=== PATIENT | female | born 1930 | race Caucasian/White ===

== ENCOUNTER → 2016-07-17 | Outpatient (CLI) | payer MEDICARE, BC ==
[2016-07-17 12:36] LABS: Basophils % (A) 0 %; CH 27.1; CHCM 30.7; Eosinophils # (A) 0.1 k/uL (0-0.7); Eosinophils % (A) 1 %; HCT 32.9 % (34.0-46.0); HDW 2.67; HGB 10.3 gm/dL (11.4-16.0); Hypochromasia Moderate; Luc # (Auto) 0.15; Luc % (Auto) 2; Lymphocytes # (A) 1.1 k/uL (1.0-4.8); Lymphocytes % (A) 18 %; MCH 27.7 pg (25.0-35.0); MCHC 31.2 g/dL (31.0-37.0); MCV 88.8 fL (80.0-100.0); Mean Platelet Volume 7.7; Monocytes # (A) 0.6 k/uL (0-1.0); Monocytes % (A) 9 %; Neutrophils # (A) 4.6 k/uL (1.3-7.7); Neutrophils % (A) 70 %; RDW 12.8 % (11.5-15.5); WBC 6.5 k/uL (3.8-10.6); WBC (Perox) 6.77
[2016-07-17 12:55] LABS: Anion Gap 11 mmol/L; Blood Urea Nitrogen 27 mg/dL (7-17); Calcium 9.8 mg/dL (8.4-10.2); Carbon Dioxide 29 mmol/L (22-30); Chloride 103 mmol/L (98-107); Glucose 96 mg/dL (74-99); Non-African American GFR(MDRD) 56 (>60 ml/min/1.73 sqM); Potassium 4.1 mmol/L (3.5-5.1); Sodium 143 mmol/L (137-145)
[2016-07-17 13:31] LABS: Appearance,Urine Clear (Clear); Bilirubin,Urine Negative (Negative); Glucose,Urine (UA) Negative (Negative); Ketones,Urine Negative (Negative); Leukocyte Esterase,Urine Trace (Negative); Nitrite,Urine Negative (Negative); Particle Count 400; Protein,Urine Trace (Negative); RBC,Urine 4 /hpf (0-5); Specific Gravity,Urine 1.008 (1.001-1.035); UA Billing (MACRO vs. MICRO) MICRO; Urobilinogen,Urine <2.0 mg/dL (<2.0); WBC,Urine 7 /hpf (0-5)
== END | disposition home or self-care (01) ==
LOC: LABPAT 11:54
PROVIDERS: ATTEND Urology
DX: Z01.812 Encounter for preprocedural laboratory examination (principal); Z01.810 Encounter for preprocedural cardiovascular examination; R35.0 Frequency of micturition; E78.00 Pure hypercholesterolemia, unspecified; R53.83 Other fatigue
CPT/HCPCS: 80048; 81001; 85025; 87086

== ENCOUNTER 2016-07-26 08:04 | Inpatient (IN) | payer MEDICARE, BC ==
[2016-07-24 11:04] VITALS: BMI 18.3
[~2016-07-26 08:04] MED LIST: LIDOCAINE 1% 20 ML VIAL (10MG/ML) FOR IV START INTRADERMA PRN; ONDANSETRON 4 MG/2 ML VIAL IVP ONE; Pre Op ABX Message 1 EACH MISC MISCELLANE ONE
[2016-07-26] MEDS: LACTATED RINGERS 1,000 ML IV SCH (08:58)
[2016-07-26] MEDS ORDERED: DEXAMETHASONE SOD PHOS (MDV) 100 MG/10 ML VIAL IV ONE (08:59)
[2016-07-26] MEDS ORDERED: PROPOFOL 10 MG/ML 20 ML VIAL IV ONE (09:40)
[2016-07-26] MEDS ORDERED: GLYCOPYRROLATE 0.2 MG/ML 2 ML VIAL ONE (09:40)
[2016-07-26] MEDS ORDERED: fentaNYL (PF) 50 MCG/ML 2 ML AMP ONE (09:40)
[2016-07-26] MEDS ORDERED: METOPROLOL TARTRATE 5 MG/5 ML VIAL IVP ONE (09:40)
[2016-07-26] MEDS ORDERED: LIDOCAINE 1% INJ 10MG/ML (20 ML MDV) ONE (09:40)
[2016-07-26] MEDS ORDERED: IOHEXOL 180 MG/ML 1 ML ML MISCELLANE ONE (10:02)
[2016-07-26] MEDS ORDERED: MORPHINE SULFATE 2 MG/ML SYRINGE IV PRN (10:29)
[2016-07-26] MEDS ORDERED: ACETAMINOPHEN TAB 325 MG TAB PO PRN (10:29)
--- NOTE | 2016-07-26 10:36 | P.OP ---
Date of Procedure: 07/26/16 Preoperative Diagnosis: Superficial bladder cancer Postoperative Diagnosis: Same Procedure(s) Performed: Transurethral resection of recurrent superficial bladder cancer Anesthesia: ERIC Surgeon: Emiliano Melara Estimated Blood Loss (ml): 25 Pathology: other (Bladder tumor) Condition: stable Disposition: PACU Indications for Procedure: The patient is an 86-year-old female with recurrent superficial bladder cancer for many years. She chose not to follow up for about a urinary cath only to come back with gross hematuria. Cystoscopy identified multiple's recurrent superficial tumors on the posterior and anterior bladder wall Description of Procedure: The patient is brought to the operating suite and given a general endotracheal anesthesia. Cystoscopy Foroblique lens and 22-[place]izen [place] sheath identifies multiple small bladder tumors throughout the bladder wall and particularly of the posterior wall and in the anterior bladder neck. Cannot obviously find the ureteral orifice disease. With the Arango resectoscope and 25-[place]izen [place] sheath I resect all these tumors. There is an extremely thin portion of the right posterior bladder wall or ago transmural Scott appears to be within the fat. At the end of the procedure thus I elected to leave a 16-[place]izen [place] Cueto catheters placed and irrigates freely. The patient awake and returned recovery room good condition. Patellar procedure well. She'll be observed in the hospital overnight. She'll need to have the catheter left in place for a week because of the very thin posterior wall where the tumor is resected. a Cueto catheter and leave this. The bladder tumor areas were fulgurated thoroughly.
[2016-07-26] MEDS ORDERED: ONDANSETRON 4 MG/2 ML VIAL IVP ONE (10:44)
[2016-07-26] MEDS: HYDROmorphone 1 MG/ML 1 ML SYRINGE IVP PRN ×4 (11:11→12:16)
[2016-07-26] MEDS ORDERED: hydrALAZINE HCL 20 MG/ML 1 ML VIAL IVP ONE (12:53)
[2016-07-26] MEDS ORDERED: HYDROmorphone 1 MG/ML 1 ML SYRINGE IVP ONE ×2 (13:45→13:50)
[2016-07-26] MEDS: HYDROcodone/APAP 5-325MG 1 EACH TAB PO PRN ×2 (16:55→23:42)
[2016-07-26] MEDS: DEXTROSE 5%-0.45% NACL 1,000 ML IV SCH (17:34)
[2016-07-26] MEDS: DONEPEZIL 10 MG TAB PO SCH (20:53)
[2016-07-27] MEDS: HYDROcodone/APAP 5-325MG 1 EACH TAB PO PRN ×2 (05:18→13:27)
[2016-07-27] MEDS: ONDANSETRON 4 MG/2 ML VIAL IVP PRN (05:43)
--- NOTE | 2016-07-27 10:37 | P.PN ---
Subjective The patient underwent transurethral resection of multiple small bladder tumors yesterday. Her bladder poole very thin with posterior wall perforation which I' ve treated with a Cueto catheter. She did reasonably well overnight. Her urine is draining freely and is clear. She is still having some pain and nausea. Due to the pain and nausea I will continue to observe her another 24 hours. I'll try to get her up in a chair and ambulate her. We'll continue with her IVs for now. Objective - Vital Signs Vital signs: Vital Signs Temp 98.7 F 07/27/16 08:00 Pulse 84 07/27/16 08:00 Resp 18 07/27/16 08:00 BP 138/73 07/27/16 08:00 Pulse Ox 95 07/27/16 08:00 Intake & Output 07/26/16 07/27/16 07/27/16 18:59 06:59 18:59 Intake Total 400 225 Output Total 201 300 Balance 199 -75 Intake: IV 400 150 Dextrose 5%-0.45% NaCl 1, 150 000 ml @ 50 mls/hr IV . Q20H [facility] Rx#:[id number] Oral 75 Output: Urine 200 300 Estimated Blood Loss 1 Other: Voiding Method Indwelling Catheter Indwelling Catheter
[2016-07-27] MEDS: LACTATED RINGERS 1,000 ML IV SCH (13:28)
[2016-07-27] MEDS: ATENOLOL 25 MG TAB PO SCH (13:29)
[2016-07-27] MEDS: DEXTROSE 5%-0.45% NACL 1,000 ML IV SCH (13:29)
[2016-07-27] MEDS: ATORVASTATIN 20 MG TAB PO SCH (13:29)
[2016-07-27] MEDS: DONEPEZIL 10 MG TAB PO SCH (21:46)
[2016-07-28] MEDS: DEXTROSE 5%-0.45% NACL 1,000 ML IV SCH (04:13)
[2016-07-28] MEDS: LACTATED RINGERS 1,000 ML IV SCH (04:16)
--- NOTE | 2016-07-28 07:37 | P.DS ---
Providers Attending physician: Emiliano Melara Primary care physician: [facility] Course: The patient is an 86-year-old female who has a history of superficial recurrent bladder tumors. She elected not to follow up for about a 18 months until she had hematuria. Follow-up cystoscopy identified recurrent superficial cancers. She underwent resection. Due to her age and frail nature, a very thin bladder and the request the family I kept in the hospital overnight postoperatively. She had not moved still had discomfort in the morning thus I kept her another 24 hours. This morning she feels better. She has been up. Her pain is under control. She is ambulated. She requests to go home. She'll be discharged home this morning and follow-up next week for catheter removal. Pathology is pending upon discharge. Procedures: turbt Patient Condition at Discharge: Good Plan - Discharge Summary Discharge Medication List Donepezil [Aricept] 10 mg PO HS 07/23/15 [History] Calcium Carbonate/Vitamin D3 [Calcium 600-Vit D3 400 Caplet] 1 tab PO DAILY 05/03 [History] Atorvastatin [Lipitor] 20 mg PO DAILY 04/18/16 [History] Atenolol [Tenormin] 25 mg PO DAILY #30 tab 04/20/16 [Rx] Follow up Appointment(s)/Referral(s): [facility] Visiting Nurse, [NON-STAFF] - 1 Week Emiliano Melara MD [STAFF PHYSICIAN] - 08/03/16 Discharge Disposition: HOME SELF-CARE
[2016-07-28] MEDS: ATORVASTATIN 20 MG TAB PO SCH (10:34)
[2016-07-28] MEDS: ATENOLOL 25 MG TAB PO SCH (10:35)
[2016-07-28] MEDS: DONEPEZIL 10 MG TAB PO SCH (20:25)
[2016-07-29] MEDS: DEXTROSE 5%-0.45% NACL 1,000 ML IV SCH ×2 (03:14→18:30)
--- NOTE | 2016-07-29 10:21 | XR ---
EXAMINATION TYPE: XR abdomen 2V DATE OF EXAM: 07/29/2016 10:17 AM COMPARISON: CT abdomen pelvis 06/06/2016 INDICATION: Ileus TECHNIQUE: Abdomen examined in the supine and upright view. FINDINGS: There is air within the colon. Some nonspecific small bowel gas is present. Psoas margins are normal. No organomegaly is present. Costochondral cartilage calcification is present. Degenerative changes are within the lumbar spine IMPRESSION: 1. Nonspecific abdomen
--- NOTE | 2016-07-29 10:23 | XR ---
EXAMINATION TYPE: XR chest 2V DATE OF EXAM: 07/29/2016 10:17 AM COMPARISON: NONE INDICATION: Rehabilitation placement TECHNIQUE: Frontal and lateral views of the chest are obtained. FINDINGS: The heart size is normal. The pulmonary vasculature is normal. On the lateral view there is hyperinflation flattened diaphragms. Posterior pleural effusions are elías ntified. IMPRESSION: 1. 1. COPD. 2. Small posterior pleural effusions.
[2016-07-29 10:31] LABS: CH 26.6; CHCM 30.4; HCT 33.4 % (34.0-46.0); HDW 2.53; HGB 10.5 gm/dL (11.4-16.0); Hypochromasia Moderate; MCH 27.6 pg (25.0-35.0); MCHC 31.4 g/dL (31.0-37.0); MCV 87.9 fL (80.0-100.0); Mean Platelet Volume 7.7; RDW 12.9 % (11.5-15.5); WBC 9.8 k/uL (3.8-10.6)
[2016-07-29 11:16] LABS: Anion Gap 10 mmol/L; Blood Urea Nitrogen 29 mg/dL (7-17); Calcium 9.6 mg/dL (8.4-10.2); Carbon Dioxide 24 mmol/L (22-30); Chloride 101 mmol/L (98-107); Glucose 130 mg/dL (74-99); Non-African American GFR(MDRD) >60 (>60 ml/min/1.73 sqM); Sodium 135 mmol/L (137-145)
[2016-07-29] MEDS: ATENOLOL 25 MG TAB PO SCH (11:23)
[2016-07-29] MEDS: ATORVASTATIN 20 MG TAB PO SCH (11:23)
[2016-07-29] MEDS ORDERED: traMADol 50 MG TAB PO PRN (13:16)
[2016-07-29] MEDS: ONDANSETRON 4 MG/2 ML VIAL IVP PRN (13:25)
[2016-07-29] MEDS: METOPROLOL TARTRATE 12.5 MG TAB PO SCH ×2 (14:17→22:22)
[2016-07-29] MEDS ORDERED: KETOROLAC 30 MG/ML 1 ML VIAL IVP PRN (14:59)
--- NOTE | 2016-07-29 16:37 | HP ---
Patient is admitted for dissection of multiple small bladder tumors and patient had a Cueto catheter and patient does not have any much blood in the urine. I was consulted to take over the service, as patient will need disposition and patient does have dementia. Patient does have dementia, which appears to be advanced from discussion with the family members. Patient is thin but cachectic 86-year-old female. Patient is a bit cold and otherwise patient was having bilious vomiting. The abdominal x-ray did not show any obstructive bowel gas pattern. Patient will be started on Protonix and I will discontinue all the narcotics. Patient will be started on ketorolac on p.r.n. basis for pain. Patient appears to have more increased confusion because of the [place] she was receiving. Chest x-ray did not show any significant abnormality except for small posterior pleural effusions. Patient denied any dysuria. Patient denied any nausea, vomiting, abdominal pain. REVIEW OF SYSTEMS: Unable to obtain due to her clinical condition. Home medications include: 1. Atenolol. 2. Donepezil. 3. Calcium carbonate. 4. Atorvastatin. 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 SOCIAL HISTORY: Denied any smoking, alcohol abuse or any drug abuse. FAMILY HISTORY: Significant for cancer. PHYSICAL EXAMINATION: VITAL SIGNS: Temperature 97.8, pulse of 70, respiratory rate of 16, blood pressure is 150/76, saturating at 94% on room air. GENERAL: Patient is very thin build, alert and oriented times around 1, which is really worse than her baseline. HEENT: Pupils are round and equally reacting to light. EOMI. No scleral icterus. No conjunctival pallor. Normocephalic, atraumatic. No pharyngeal erythema. No thyromegaly. CARDIOVASCULAR: S1 and S2 present. No murmurs, rubs, or gallops. PULMONARY: Chest is clear to auscultation, no wheezing or crackles. ABDOMEN: Minimally distended, tympanic and bowel sounds are sluggish. MUSCULOSKELETAL: No joint swelling or deformity. EXTREMITIES: No cyanosis, clubbing, or pedal edema. NEUROLOGICAL: Gross neurological examination did not reveal any focal deficits. SKIN: No rashes. LABORATORY DATA: CBC, CMP: No significant abnormality except for elevated BUN and creatinine of 29 and 0.77 which I believe is renal failure in her because of lean body mass. Patient is a very thin built and cachectic female. ASSESSMENT AND PLAN: 1. Toxic metabolic encephalopathy secondary to narcotic medications which will be discontinued. 2. Acute renal failure, prerenal azotemia due to intravascular volume depletion. Because of the pleural effusions, I am concerned about giving her IV fluids. Will encourage her to drink water orally. 3. Hypertension. Patient will be switched to metoprolol. Atenolol will be discontinued because of her episodes of hypotension. 4. Sluggish bowel sounds. Nausea, vomiting, probably related to medications; that is, [place], which will be held and will make sure patient ambulates and moves her bowels. Patient will be started on Protonix. Will use ketorolac for pain. 5. Hyperlipidemia. 6. Dementia which appears to be moderate to advanced. Continue with donepezil. 7. Generalized deconditioning. 8. Moderate protein-calorie malnutrition. 9. For deconditioning, patient will need placement in rehabilitation as a longterm.
[2016-07-29 17:49] LABS: Glucose,Whole Blood 150 mg/dL (75-99)
[2016-07-29] MEDS: PANTOPRAZOLE 40 MG/10 ML VIAL IVP SCH (18:31)
[2016-07-29] MEDS: SODIUM CHLORIDE 0.9% 1,000 ML IV SCH (22:22)
[2016-07-29] MEDS: DONEPEZIL 10 MG TAB PO SCH (22:22)
[2016-07-30] MEDS: ONDANSETRON 4 MG/2 ML VIAL IVP PRN ×2 (02:04→22:14)
[2016-07-30] MEDS ORDERED: RX INFO: IV CONTRAST WAS GIVEN 1 EACH MISC MISCELLANE PRN (06:02)
[2016-07-30] MEDS ORDERED: METOCLOPRAMIDE 5 MG/ML 2 ML VIAL IVP PRN (06:05)
[2016-07-30] MEDS: SODIUM CHLORIDE 0.9% 250 ML IV SCH ×3 (07:15→18:59)
[2016-07-30] MEDS: SODIUM CHLORIDE 0.9% 1,000 ML IV SCH (07:20)
[2016-07-30] MEDS: DEXTROSE 5%-0.45% NACL 1,000 ML IV SCH ×2 (07:20→18:59)
[2016-07-30 08:06] LABS: CH 26.7; CHCM 30.3; HDW 2.63; HGB 12.1 gm/dL (11.4-16.0); Hypochromasia Moderate; Immature Gran Flag Marked; MCH 27.4 pg (25.0-35.0); MCHC 31.1 g/dL (31.0-37.0); MCV 88.2 fL (80.0-100.0); Mean Platelet Volume 7.6; RBC 4.42 m/uL (3.80-5.40); WBC 5.1 k/uL (3.8-10.6); WBC (Perox) 5.82
[2016-07-30 08:18] LABS: Anion Gap 13 mmol/L; Blood Urea Nitrogen 33 mg/dL (7-17); Calcium 8.6 mg/dL (8.4-10.2); Carbon Dioxide 18 mmol/L (22-30); Chloride 104 mmol/L (98-107); Glucose 202 mg/dL (74-99); Non-African American GFR(MDRD) >60 (>60 ml/min/1.73 sqM); Potassium 4.2 mmol/L (3.5-5.1); Sodium 135 mmol/L (137-145)
[2016-07-30 08:21] LABS: Add Differential Manual Differential
[2016-07-30 08:25] LABS: Manual Review Performed; Metamyelocytes % 2.5 %; Nucleated Red Blood Cells 0 /100 WBC (0-0); Total Cells Counted 200
[2016-07-30] MEDS: IOHEXOL 350 MG/ML 25 ML BOTTLE (ORAL USE) PO PRN ×2 (08:55→10:07)
[2016-07-30] MEDS: ATORVASTATIN 20 MG TAB PO SCH (08:56)
[2016-07-30] MEDS: METOPROLOL TARTRATE 12.5 MG TAB PO SCH ×2 (08:56→20:52)
[2016-07-30] MEDS: PANTOPRAZOLE 40 MG/10 ML VIAL IVP SCH (08:57)
--- NOTE | 2016-07-30 10:05 | P.PN ---
Subjective The patient is still in the hospital post-bladder tumor resection. She still has lower abdominal distention. She states she is passing gas. Her KUB was nonspecific and her labs are normal. A CAT scan of the abdomen has been ordered. Objective - Vital Signs Vital signs: Vital Signs Temp 98.1 F 07/30/16 03:45 Pulse 77 07/30/16 03:45 Resp 18 07/30/16 03:45 BP 137/80 07/30/16 03:45 Pulse Ox 94 L 07/29/16 15:00 Intake & Output 07/29/16 07/30/16 07/30/16 18:59 06:59 18:59 Intake Total 365 1320 Output Total 200 570 Balance 165 750 Weight 45.359 kg Intake: IV 325 1200 Dextrose 5%-0.45% NaCl 1, 325 1200 000 ml @ 100 mls/hr IV . Q10H [facility] Rx#:[id number] Oral 40 120 Output: Urine 200 570 Uretheral (Cueto) 200 Other: Voiding Method Indwelling Catheter Indwelling Catheter - Labs CBC & Chem 7: 07/30/16 07:57 07/30/16 07:55 Labs: Abnormal Lab Results - Last 24 Hours (Table) 07/29/16 07/29/16 07/29/16 Range/Units 10:18 10:18 17:44 Hgb 10.5 L (11.4-16.0) gm/dL Hct 33.4 L (34.0-46.0) % Lymphocytes # (Manual) (1.0-4.8) k/uL Sodium 135 L (137-145) mmol/L Carbon Dioxide (22-30) mmol/L BUN 29 H (7-17) mg/dL Glucose 130 H (74-99) mg/dL POC Glucose (mg/dL) 150 H (75-99) mg/dL 07/30/16 07/30/16 Range/Units 07:55 07:57 Hgb (11.4-16.0) gm/dL Hct (34.0-46.0) % Lymphocytes # (Manual) 0.2 L (1.0-4.8) k/uL Sodium 135 L (137-145) mmol/L Carbon Dioxide 18 L (22-30) mmol/L BUN 33 H (7-17) mg/dL Glucose 202 H (74-99) mg/dL POC Glucose (mg/dL) (75-99) mg/dL
--- NOTE | 2016-07-30 13:26 | CT ---
EXAMINATION TYPE: CT abdomen pelvis w con DATE OF EXAM: 07/30/2016 1:14 PM COMPARISON: 01/28/2016 INDICATION: Nausea, vomiting, and Distention DLP: 473.7 mGycm, Automated exposure control for dose reduction was used. CONTRAST: 100 mL of Omnipaque 300. Study performed with Oral Contrast TECHNIQUE: Axial images were obtained from above the diaphragm to the pubic rami in the axial plane a t 5 mm thick sections. Reconstructed images are reviewed on the computer in the coronal plane. FINDINGS: Limited CT sections are obtained the lung bases. Minimal left and small right pleural effusions are present.. CT ABDOMEN: Free air is within the abdomen. Hiatal hernia is present. Liver: Some biliary air may be present within the left lobe liver. Loculated air within the ascites i s evident. Spleen: Normal Pancreas: Normal Adrenal glands: The adrenal glands are normal. Gallbladder: Fluid surrounds the gallbladder. Kidneys: There is a 0.7 cm calcification superior pole left kidney. A smaller posterior lateral 0.4 c m calcification is present. There is a cyst at the inferior anterior pole of the right kidney.. No hy dronephrosis is present. Delayed images were obtained through the kidneys, which remain unremarkabl e. Aorta: Vascular calcification is within the aorta. Inferior vena cava: Normal. CT PELVIS: Diffuse wall thickening of the ascending colon is present. There is wall thickening of the terminal i leum. Mild lateral wall thickening is within the transverse and descending colon. No dilated descendi ng colon is evident There are loops of bowel which are incompletely distended or lack oral contrast l imiting their evaluation. Appendix: Not visualized Urinary bladder: Urinary bladder is decompressed with a Cueto catheter and cannot be evaluated. Loops of bowel superior to the urinary bladder has thickened wall. Genitourinary structures: Uterus is normal. Adnexal regions are clear. Osseous structures: Old left symphysis pubis fracture is present. Facet degenerative changes are pres ent. IMPRESSIONS: 1. Free air within the abdomen. This is not localized. Patient had recent urinary bladder surgery wh ich may account for this air. 2. Colon bowel wall thickening diffusely greater on the ascending colon site. Consider bowel ischemia or colitis. 3. Diffuse ascites. 4. Report was called to the patient's nurse by Dr. Bangura by telephone 1325 hours 07/29/2016
[2016-07-30] MEDS ORDERED: LACTATED RINGERS 1,000 ML IV SCH ×2 (14:30→16:45)
--- NOTE | 2016-07-30 14:55 | P.GSCN ---
History of Present Illness Consult date: 07/30/16 Reason for Consult: Free intrabdominal air Requesting physician: Emiliano Melara History of present illness: 86 years old female with chronic debility, poor functional status, dementia and multiple urinary bladder tumors status post recent cystoscopy and resection. Increasing abdominal distention noted and computed tomography scan of the abdomen and pelvis ordered. CT shows pockets of free intra-abdominal air and free fluid within the pelvis. Also shows some thickening along the right and ascending colon. Patient has dementia and history obtained from review of chart. She has an indwelling Cueto catheter with dark urine. Review of Systems As stated in history of present illness Past Medical History Past Medical History: Cancer, Dementia, GERD/Reflux, GI Bleed, Hyperlipidemia, Hypertension, Memory Impairment, Osteoarthritis (OA) Additional Past Medical History / Comment(s): bladder cancer, bladder tumors, cataracts, anemia from gastric ulcers, heart murmer and irregular heartbeat, varicose veins, hx fx pelvis, constipation, uses cane or walker, occ dizziness History of Any Multi-Drug Resistant Organisms: None Reported Past Surgical History: Adenoidectomy, Hysterectomy, Tonsillectomy Additional Past Surgical History / Comment(s): bladder surgery for tumors in bladder Past Anesthesia/Blood Transfusion Reactions: No Reported Reaction Past Psychological History: No Psychological Hx Reported Additional Psychological History / Comment(s): dementia Smoking Status: Never smoker Past Alcohol Use History: None Reported Past Drug Use History: None Reported - Past Family History Mother History Unknown: Yes Family Medical History: Coronary Artery Disease (CAD) Father Family Medical History: Cancer Brother(s) Family Medical History: Cancer Sister(s) Family Medical History: Cancer, Deep Vein Thrombosis (DVT) Medications and Allergies Home Medications Medication Instructions Recorded Confirmed Type Donepezil [Aricept] 10 mg PO HS 07/23/15 07/26/16 History Calcium Carbonate/Vitamin D3 1 tab PO DAILY 01/27/16 07/26/16 History [Calcium 600-Vit D3 400 Caplet] Atorvastatin [Lipitor] 20 mg PO DAILY 04/18/16 07/26/16 History Allergies Allergy/AdvReac Type Severity Reaction Status Date / Time No Known Allergies Allergy Verified 04/18/16 14:12 Surgical - Exam Vital Signs Temp Pulse Resp BP Pulse Ox 97.7 F 72 16 167/78 98 07/26/16 08:38 07/26/16 08:38 07/26/16 08:38 07/26/16 08:38 07/26/16 08:38 General: Patient is not alert and oriented to time, place and person . No communication could establish with the patient. She opens eyes to command. Cachectic, thin built HEENT: No pallor, no icterus Chest: Bilateral equal breath sounds present. No wheezes, no crackles. Cardiovascular: Regular rate and rhythm. Abdomen: Markedly distended abdomen below the umbilicus. No diffuse peritonitis. Results - Labs 07/31/16 02:16 07/31/16 02:16 Abnormal Lab Results - Last 24 Hours (Table) 07/29/16 07/30/16 07/30/16 Range/Units 17:44 07:55 07:57 Lymphocytes # (Manual) 0.2 L (1.0-4.8) k/uL Sodium 135 L (137-145) mmol/L Carbon Dioxide 18 L (22-30) mmol/L BUN 33 H (7-17) mg/dL Glucose 202 H (74-99) mg/dL POC Glucose (mg/dL) 150 H (75-99) mg/dL Diabetes panel 07/30/16 Range/Units 07:55 Sodium 135 L (137-145) mmol/L Potassium 4.2 (3.5-5.1) mmol/L Chloride 104 (98-107) mmol/L Carbon Dioxide 18 L (22-30) mmol/L BUN 33 H (7-17) mg/dL Creatinine 0.80 (0.52-1.04) mg/dL Glucose 202 H (74-99) mg/dL Calcium 8.6 (8.4-10.2) mg/dL Calcium panel 07/30/16 Range/Units 07:55 Calcium 8.6 (8.4-10.2) mg/dL Pituitary panel 07/30/16 Range/Units 07:55 Sodium 135 L (137-145) mmol/L Potassium 4.2 (3.5-5.1) mmol/L Chloride 104 (98-107) mmol/L Carbon Dioxide 18 L (22-30) mmol/L BUN 33 H (7-17) mg/dL Creatinine 0.80 (0.52-1.04) mg/dL Glucose 202 H (74-99) mg/dL Calcium 8.6 (8.4-10.2) mg/dL Adrenal panel 07/30/16 Range/Units 07:55 Sodium 135 L (137-145) mmol/L Potassium 4.2 (3.5-5.1) mmol/L Chloride 104 (98-107) mmol/L Carbon Dioxide 18 L (22-30) mmol/L BUN 33 H (7-17) mg/dL Creatinine 0.80 (0.52-1.04) mg/dL Glucose 202 H (74-99) mg/dL Calcium 8.6 (8.4-10.2) mg/dL - Imaging CT scan - abdomen: image reviewed (Computed tomography scan of the abdomen and pelvis reviewed. Pockets of free air along the liver edge. There is also free fluid within the abdomen. Thickening of the ascending colon noted.) Assessment and Plan (1) HTN (hypertension) Status: Acute (2) Anemia Status: Acute (3) Dementia Status: Acute (4) Bladder cancer Status: Acute Plan: 1. Retrograde cystourethrogram STAT to exclude any urinary extravasation intraperitoneally 2. Nasogastric decompression 3. IV hydration 4. Continue Cueto catheter 5. Poor functional status, poor nutritional status and dementia and thus poor surgical candidate. I will continue to monitor the patient closely at this time. Discussed the clinical findings with the patient's extended family at bedside and Dr. Melara
--- NOTE | 2016-07-30 15:40 | FL ---
EXAMINATION TYPE: FL cystogram DATE OF EXAM: 07/30/2016 3:13 PM COMPARISON: NONE HISTORY: Free air on CT TECHNIQUE: Fluoroscopy. FINDINGS: Under fluoroscopic observation a retrograde cystogram was performed. Catheter was are in pl [place] and contrast was administered in retrograde fashion. Estimated 50-100 mL of Cystografin was fille d in retrograde fashion. The remainder was suspected to have spilled. Urinary bladder filled to a sm all degree. Reflux into the right ureter was quickly visualized. There is some calyceal dilatation an d filling of the right renal collecting system. Minimal reflux into the left ureter was present. No e xtravasation of contrast was evident during the examination. Additional filling was attempted althoug h contrast began to pass beyond the catheter through the urethra no additional filling could be perfo rmed. IMPRESSION: 1. Reflux to the dilated calyces on the right. Minimal left ureteral reflux was also present. 2. No extravasation of contrast to account for free air within the abdomen.
--- NOTE | 2016-07-30 16:01 | P.PN ---
Subjective The patient had a computed tomography scan of the abdomen and pelvis. It showed what appears to be fluid in the prevesical space and air. The radiologist is reading this as intraperitoneal air. Her lower abdomen is sore but her upper abdomen is not. I had Dr. Vargas of general surgery see the patient. She recommended a cystogram. There is no evidence of leak. I suspect she had some leak at the time of surgery and the bladder has sealed. I will discuss with Dr. Vargas further plans. She is afebrile. Her white blood cell count is normal. Her vital signs are stable. She is is distended without peritoneal signs. Objective - Vital Signs Vital signs: Vital Signs Temp 98.4 F 07/30/16 15:00 Pulse 92 07/30/16 15:00 Resp 18 07/30/16 15:00 BP 144/81 07/30/16 15:00 Pulse Ox 94 L 07/30/16 15:00 Intake & Output 07/29/16 07/30/16 07/30/16 18:59 06:59 18:59 Intake Total 365 1320 Output Total 200 570 Balance 165 750 Weight 45.359 kg Intake: IV 325 1200 Dextrose 5%-0.45% NaCl 1, 325 1200 000 ml @ 100 mls/hr IV . Q10H [facility] Rx#:[id number] Oral 40 120 Output: Urine 200 570 Uretheral (Cueto) 200 Other: Voiding Method Indwelling Catheter Indwelling Catheter Indwelling Catheter - Labs CBC & Chem 7: 07/30/16 07:57 07/30/16 07:55 Labs: Abnormal Lab Results - Last 24 Hours (Table) 07/29/16 07/30/16 07/30/16 Range/Units 17:44 07:55 07:57 Lymphocytes # (Manual) 0.2 L (1.0-4.8) k/uL Sodium 135 L (137-145) mmol/L Carbon Dioxide 18 L (22-30) mmol/L BUN 33 H (7-17) mg/dL Glucose 202 H (74-99) mg/dL POC Glucose (mg/dL) 150 H (75-99) mg/dL
[2016-07-30 16:17] LABS: INR 1.2 (<1.1); Partial Thromboplastin Time 22.8 sec (22.0-30.0); Prothrombin Time 11.5 sec (9.0-12.0)
--- NOTE | 2016-07-30 18:30 | PN ---
The patient is admitted for dissection of the multiple small bladder tumors. Patient does not have any more hematuria, but the patient apparently patient has abdomen was distended because of which patient had an abdominal CT yesterday, which showed free intraperitoneal air, although patient does not have any symptoms accounting for that and patient does not have any abdominal tenderness. Patient is pain-free. The patient's abdomen is actually less distended, looks much better today clinically. Clinically the patient looks much better today clinically. Patient does not have any rebound or rigidity. Surgery was consulted because of these are unaccountable findings on the CT. Patient had a cystogram to see if there is any leakage from the cystoscopy, although there is no intraperitoneal air. Patient has an anion gap probably related to chloride. Initially started on fluids, but I saw pleural effusions on the CT because of which I discontinued the fluids. We will obtain lactic acid. If it is elevated, we will go ahead and give her fluids. REVIEW OF SYSTEMS: CARDIOVASCULAR: No chest pain, no orthopnea, no PND, no palpitations. PULMONARY: Denied any shortness of breath. No cough or hemoptysis. GASTROINTESTINAL: No diarrhea, nausea or vomiting. No abdominal pain. Normoactive bowel sounds. NEUROLOGIC: No headaches, no weakness, no numbness. Medications are reviewed. PHYSICAL EXAMINATION: VITAL SIGNS: Temperature 98.4, pulse of 92, respiratory rate of 18, blood pressure is 144/81. Saturating at 94% on 2 liters of O2 nasal cannula. GENERAL: Very thin built female. HEENT: Pupils are round and equally reacting to light. EOMI. No scleral icterus. No conjunctival pallor. Normocephalic, atraumatic. No pharyngeal erythema. No thyromegaly. CARDIOVASCULAR: S1 and S2 present. No murmurs, rubs, or gallops. PULMONARY: Chest is clear to auscultation, no wheezing or crackles. ABDOMEN: Minimally distended. Sluggish bowel sounds, actually better than yesterday. No rebound or rigidity. MUSCULOSKELETAL: No joint swelling or deformity. EXTREMITIES: No cyanosis, clubbing, or pedal edema. NEUROLOGICAL: Gross neurological examination did not reveal any focal deficits. SKIN: No rashes. LABORATORY DATA: CBC and basic metabolic profile are essentially within normal limits. ASSESSMENT AND PLAN: 1. Toxic metabolic encephalopathy, which resolved at this point of time. 2. Acute renal failure secondary to prerenal azotemia due to intravascular depletion. Patient needs to be encouraged to drink water, because of the bilateral pleural effusion I do not want to give IV fluids. 3. Hypertension. 4. Free intraperitoneal air, etiology is unknown, although patient does not have any signs or symptoms of bowel rupture or viscus rupture. 5. Dementia. 6. Hyperlipidemia. 7. Generalized deconditioning. 8. Moderate protein calorie malnutrition and deconditioning. The patient will need rehab placement, although, there is free intraperitoneal air. The patient does not have any signs or symptoms of peritonitis at this point of time. I do not believe patient will need surgical intervention unless recommended by surgery. 9. Anion gap acidosis secondary to probably hyperchloremia.
[2016-07-30] MEDS: DONEPEZIL 10 MG TAB PO SCH (22:15)
[2016-07-30] MEDS ORDERED: ADENOSINE 3 MG/ML 2 ML VIAL IVP ONE (22:30)
[2016-07-30] MEDS ORDERED: ADENOSINE 3 MG/ML 2 ML VIAL IVP STA (22:37)
[2016-07-30 22:58] LABS: CH 26.4; CHCM 29.9; HCT 41.2 % (34.0-46.0); HDW 2.65; HGB 12.6 gm/dL (11.4-16.0); Hypochromasia Marked; Immature Gran Flag Marked; MCH 27.1 pg (25.0-35.0); MCHC 30.6 g/dL (31.0-37.0); MCV 88.5 fL (80.0-100.0); Mean Platelet Volume 8.2; RBC 4.66 m/uL (3.80-5.40); RDW 13.1 % (11.5-15.5); WBC 13.1 k/uL (3.8-10.6); WBC (Perox) 12.84
[2016-07-30] MEDS: ADENOSINE 3 MG/ML 2 ML VIAL IVP STA (22:58)
[2016-07-30 23:01] LABS: Calcium 9.1 mg/dL (8.4-10.2); Total Bilirubin 1.7 mg/dL (0.2-1.3)
[2016-07-30 23:06] LABS: Potassium 4.4 mmol/L (3.5-5.1)
[2016-07-30 23:14] LABS: Add Differential Manual Differential
[2016-07-30] MEDS ORDERED: DILTIAZEM 125 MG in SODIUM CHLORIDE 0.9% 100 ML IV SCH (23:15)
[2016-07-30 23:18] LABS: Metamyelocytes % 15.5 %; Nucleated Red Blood Cells 0 /100 WBC (0-0); Total Cells Counted 200
[2016-07-30 23:19] LABS: Magnesium 2.1 mg/dL (1.6-2.3); Phosphorous 4.5 mg/dL (2.5-4.5)
[2016-07-30 23:21] LABS: Crenated RBC Present; Large Platelets Present; Manual Review Performed; Ovalocytes Present
[2016-07-30 23:26] LABS: Glucose,Whole Blood 180 mg/dL (75-99)
[2016-07-31 00:49] LABS: ABG HCO3 11 mmol/L (21-25); ABG PCO2 52 mmHg (35-45); ABG PH <7.00 (7.35-7.45); ABG PO2 134 mmHg (83-108)
[2016-07-31 00:50] LABS: ABG Base Excess -19.1 mmol/L; ABG TCO2 12 mmol/L (19-24)
[2016-07-31] MEDS ORDERED: PROPOFOL 50 ML IV ONE (00:55)
[2016-07-31] MEDS ORDERED: SODIUM BICARB 8.4% 50 ML SYR (1 MEQ/ML) ONE (00:56)
[2016-07-31] MEDS ORDERED: ATROPINE SULFATE 0.1 MG/ML 10ML SYRINGE ONE (00:58)
[2016-07-31] MEDS ORDERED: ETOMIDATE 2 MG/ML 10 ML VIAL ONE (01:00)
[2016-07-31] MEDS ORDERED: Potassium Replacement Protocol 1 EACH MISC MISCELLANE PRN (01:30)
[2016-07-31] MEDS ORDERED: NALOXONE 0.4 MG/ML 1 ML VIAL IV PRN (01:30)
[2016-07-31] MEDS ORDERED: ARTIFICIAL TEARS OINTMENT 3.5 GM TUBE BOTH EYES PRN (01:30)
[2016-07-31] MEDS ORDERED: Magnesium Replacement Protocol 1 EACH MISC MISCELLANE PRN (01:30)
[2016-07-31] MEDS: SODIUM CHLORIDE 0.9% 2,000 ML IV SCH ×2 (01:30→02:30)
[2016-07-31] MEDS ORDERED: Phosphorus Replacement Protoco 1 EACH MISC MISCELLANE PRN (01:30)
[2016-07-31] MEDS ORDERED: IPRATROPIUM-ALBUTEROL 3 ML NEB INHALATION PRN (01:30)
[2016-07-31] MEDS ORDERED: ACETAMINOPHEN IV (For NPO) 1,000 MG in EMPTY BAG 1 BAG IVPB PRN (01:30)
[2016-07-31] MEDS ORDERED: NOREPINEPHRINE 4 MG-0.9% NS PMX 250 ML IV ONE ×2 (01:35→03:51)
[2016-07-31] MEDS: NOREPINEPHRINE 4 MG in SODIUM CHLORIDE 0.9% 250 ML IV SCH ×6 (02:00→06:37)
[2016-07-31] MEDS ORDERED: SODIUM BICARB 8.4% 50 ML VIAL (1 MEQ/ML) IV STA (02:03)
--- NOTE | 2016-07-31 02:12 | XR ---
EXAMINATION TYPE: XR chest 1V portable DATE OF EXAM: 07/31/2016 1:53 AM COMPARISON: 07/29/2016 HISTORY: Respiratory distress TECHNIQUE: Single frontal view of the chest is obtained. FINDINGS: There is blunting of right costo phrenic angle. There is mild pulmonary vascular congestio n. There are chest leads. Endotracheal tube has the tip in the right mainstem bronchus. There is prob ably some infiltrate in the right lower lobe. There is mild blunting of left costophrenic angle also. IMPRESSION: Mild heart failure with bilateral pleural effusions. Chest x-ray is the same or slightly worse than last exam. Endotracheal tube is too low and should be pulled back 4 cm.
[2016-07-31] MEDS ORDERED: DEXTROSE 5% IN WATER 1,000 ML with SODIUM BICARB (1 MEQ/ML) 150 ML IV SCH (02:15)
--- NOTE | 2016-07-31 02:18 | P.PN ---
Subjective Principal diagnosis: Sepsis 86 yr old female S/P cystoscopy and bladder resection . Patient had increasing SOB and was intubated. NG inserted- dark bilious output. No urinary output. Patient is hypotensive. A-line inserted and on Levophed drip. Objective - Vital Signs Vital signs: Vital Signs Temp 97.8 F 07/30/16 21:32 Pulse 104 H 07/30/16 21:32 Resp 18 07/30/16 21:32 BP 144/88 07/30/16 21:32 Pulse Ox 94 L 07/30/16 15:00 Intake & Output 07/30/16 07/30/16 07/31/16 06:59 18:59 06:59 Intake Total 1320 950 Output Total 570 350 Balance 750 950 -350 Weight 45.359 kg Intake: IV 1200 600 Dextrose 5%-0.45% NaCl 1, 1200 600 000 ml @ 100 mls/hr IV . Q10H [facility] Rx#:[id number] Intake, IV Titration 350 Amount Lactated Ringers 1,000 ml 200 @ 100 mls/hr IV .Q10H [facility]Y Rx#:[id number] Lactated Ringers 1,000 ml 150 @ 75 mls/hr IV .[id number] M[facility]Y Rx#:[id number] Oral 120 Output: Urine 570 350 Other: Voiding Method Indwelling Catheter Indwelling Catheter - Exam Patient is intubated. Opens eyes. Unequal pupil size. Decreased breath sounds bilaterallungs Abdomen is markedly distended with no bowel sounds Urine output- none - Labs CBC & Chem 7: 07/31/16 02:16 07/31/16 02:16 Labs: Abnormal Lab Results - Last 24 Hours (Table) 07/30/16 07/30/16 07/30/16 Range/Units 07:55 07:57 15:49 WBC (3.8-10.6) k/uL MCHC (31.0-37.0) g/dL Neutrophils # (Manual) (1.3-7.7) k/uL Lymphocytes # (Manual) 0.2 L (1.0-4.8) k/uL ABG pH (7.35-7.45) ABG pCO2 (35-45) mmHg ABG pO2 (83-108) mmHg ABG HCO3 (21-25) mmol/L ABG Total CO2 (19-24) mmol/L Sodium 135 L (137-145) mmol/L Carbon Dioxide 18 L (22-30) mmol/L BUN 33 H (7-17) mg/dL Creatinine (0.52-1.04) mg/dL Glucose 202 H (74-99) mg/dL POC Glucose (mg/dL) (75-99) mg/dL Plasma Lactic Acid Michael 4.2 H* (0.7-2.0) mmol/L Total Bilirubin (0.2-1.3) mg/dL Troponin I (0.000-0.034) ng/mL Total Protein (6.3-8.2) g/dL Albumin (3.5-5.0) g/dL Prealbumin (18-36) mg/dL 07/30/16 07/30/16 07/30/16 Range/Units 15:49 22:36 22:36 WBC 13.1 H (3.8-10.6) k/uL MCHC 30.6 L (31.0-37.0) g/dL Neutrophils # (Manual) 9.0 H (1.3-7.7) k/uL Lymphocytes # (Manual) 0.7 L (1.0-4.8) k/uL ABG pH (7.35-7.45) ABG pCO2 (35-45) mmHg ABG pO2 (83-108) mmHg ABG HCO3 (21-25) mmol/L ABG Total CO2 (19-24) mmol/L Sodium (137-145) mmol/L Carbon Dioxide (22-30) mmol/L BUN (7-17) mg/dL Creatinine (0.52-1.04) mg/dL Glucose (74-99) mg/dL POC Glucose (mg/dL) (75-99) mg/dL Plasma Lactic Acid Michael 6.6 H* (0.7-2.0) mmol/L Total Bilirubin (0.2-1.3) mg/dL Troponin I (0.000-0.034) ng/mL Total Protein (6.3-8.2) g/dL Albumin (3.5-5.0) g/dL Prealbumin 6 L (18-36) mg/dL 07/30/16 07/30/16 07/30/16 Range/Units 22:36 22:36 23:24 WBC (3.8-10.6) k/uL MCHC (31.0-37.0) g/dL Neutrophils # (Manual) (1.3-7.7) k/uL Lymphocytes # (Manual) (1.0-4.8) k/uL ABG pH (7.35-7.45) ABG pCO2 (35-45) mmHg ABG pO2 (83-108) mmHg ABG HCO3 (21-25) mmol/L ABG Total CO2 (19-24) mmol/L Sodium 134 L (137-145) mmol/L Carbon Dioxide 14 L (22-30) mmol/L BUN 39 H (7-17) mg/dL Creatinine 1.20 H (0.52-1.04) mg/dL Glucose 171 H (74-99) mg/dL POC Glucose (mg/dL) 180 H (75-99) mg/dL Plasma Lactic Acid Michael (0.7-2.0) mmol/L Total Bilirubin 1.7 H (0.2-1.3) mg/dL Troponin I 0.126 H* (0.000-0.034) ng/mL Total Protein 5.0 L (6.3-8.2) g/dL Albumin 2.4 L (3.5-5.0) g/dL Prealbumin (18-36) mg/dL 07/31/16 Range/Units 00:32 WBC (3.8-10.6) k/uL MCHC (31.0-37.0) g/dL Neutrophils # (Manual) (1.3-7.7) k/uL Lymphocytes # (Manual) (1.0-4.8) k/uL ABG pH <7.00 L* (7.35-7.45) ABG pCO2 52 H (35-45) mmHg ABG pO2 134 H (83-108) mmHg ABG HCO3 11 L (21-25) mmol/L ABG Total CO2 12 L (19-24) mmol/L Sodium (137-145) mmol/L Carbon Dioxide (22-30) mmol/L BUN (7-17) mg/dL Creatinine (0.52-1.04) mg/dL Glucose (74-99) mg/dL POC Glucose (mg/dL) (75-99) mg/dL Plasma Lactic Acid Michael (0.7-2.0) mmol/L Total Bilirubin (0.2-1.3) mg/dL Troponin I (0.000-0.034) ng/mL Total Protein (6.3-8.2) g/dL Albumin (3.5-5.0) g/dL Prealbumin (18-36) mg/dL Assessment and Plan (1) HTN (hypertension) Status: Acute (2) Anemia Status: Acute (3) Dementia Status: Acute (4) Bladder cancer Status: Acute Plan: 1.86 yr old female 2. Hypotension, acidotic, septic shock . Multisystem organ failure. 3. Poor prognosis. Discussed with family. No surgical intervention. No Chest compression, CPR. 4. Continue ventilatory support 5. In depth discussion with family regarding comfort care for >30 min in ICU .
[2016-07-31 02:34] LABS: CH 25.8; CHCM 27.7; HCT 39.5 % (34.0-46.0); HDW 2.58; HGB 11.5 gm/dL (11.4-16.0); Hypochromasia Marked; Immature Gran Flag Marked; MCH 27.3 pg (25.0-35.0); MCHC 29.1 g/dL (31.0-37.0); Mean Platelet Volume 8.7; RBC 4.21 m/uL (3.80-5.40); RDW 12.8 % (11.5-15.5); WBC (Perox) 11.73
[2016-07-31 02:35] LABS: MCV 93.7 fL (80.0-100.0)
[2016-07-31 02:44] LABS: Calcium 9.1 mg/dL (8.4-10.2); Magnesium 2.6 mg/dL (1.6-2.3); Phosphorous 6.8 mg/dL (2.5-4.5); Potassium 4.5 mmol/L (3.5-5.1); Total Bilirubin 1.4 mg/dL (0.2-1.3); Total Protein 4.8 g/dL (6.3-8.2)
[2016-07-31 03:00] LABS: INR 1.3 (<1.1); Partial Thromboplastin Time 25.6 sec (22.0-30.0); Prothrombin Time 13.1 sec (9.0-12.0)
[2016-07-31] MEDS ORDERED: PIPERACILLIN-TAZOBACTAM 3.375 GM in DEXTROSE/WATER 1 50ML.BAG IVPB SCH (03:00)
[2016-07-31 03:09] LABS: Add Differential Manual Differential
[2016-07-31 03:20] LABS: Metamyelocytes % 9.5 %; Nucleated Red Blood Cells 5 /100 WBC (0-0); Total Cells Counted 200
[2016-07-31 03:22] LABS: WBC 10.8 k/uL (3.8-10.6)
[2016-07-31 03:24] LABS: Polychromasia Present
[2016-07-31 03:25] LABS: Toxic Granulation Present
[2016-07-31 03:26] LABS: Manual Review Performed
[2016-07-31] MEDS: IPRATROPIUM-ALBUTEROL 3 ML NEB INHALATION SCH ×3 (03:47→07:15)
[2016-07-31 06:42] VITALS: BP 126/93; TEMP 97.7
--- NOTE | 2016-07-31 07:33 | P.PN ---
Subjective Events of last night are noted. The patient developed a supraventricular tachycardia and apparently became acidotic. She is transferred to the intensive care unit and intubated. It became apparent that she was septic based on the laboratory studies. She required pressor agents. Dr. Vargas and I initially discussed surgery because of the free air however with the bladder being negative and her clinically looking good yesterday we chose not to proceed because she was so frail. The bladder did not show any evidence of perforation on the cystogram. The family did not want surgery. Status is critical and she is near at this point in time do not wish resuscitation and understand the status of patient. Objective - Vital Signs Vital signs: Vital Signs Temp 97.7 F 07/31/16 04:00 Pulse 100 07/31/16 05:45 Resp 31 H 07/31/16 05:45 BP 126/93 07/31/16 03:30 Pulse Ox 92 L 07/31/16 05:45 Intake & Output 07/30/16 07/31/16 07/31/16 18:59 06:59 18:59 Intake Total 950 486.985 Output Total 350 Balance 950 136.985 Weight 50.3 kg Intake: IV 600 Dextrose 5%-0.45% NaCl 1, 600 000 ml @ 100 mls/hr IV . Q10H [facility] Rx#:[id number] Intake, IV Titration 350 486.985 Amount Diltiazem 125 mg In 3.75 Sodium Chloride 0.9% 100 ml @ 5 MG/HR 5 mls/hr IV .Q24H [facility] Rx#:[id number] Lactated Ringers 1,000 ml 200 @ 100 mls/hr IV .Q10H [facility] Rx#:[id number] Lactated Ringers 1,000 ml 150 @ 75 mls/hr IV .[id number] [facility] Rx#:[id number] Norepinephrine 4 mg In 483.235 Sodium Chloride 0.9% 250 ml @ Titrate IV .Q0M [facility] Rx#:[id number] Output: Urine 350 Other: Voiding Method Indwelling Catheter Indwelling Catheter ABP, PAP, CO, CI - Last Documented Arterial Blood Pressure 56/41 - Labs CBC & Chem 7: 07/31/16 02:16 07/31/16 02:16 Labs: Abnormal Lab Results - Last 24 Hours (Table) 07/30/16 07/30/1617 Range/Units 07:55 07:57 15:49 WBC (3.8-10.6) k/uL MCHC (31.0-37.0) g/dL Neutrophils # (Manual) (1.3-7.7) k/uL Lymphocytes # (Manual) 0.2 L (1.0-4.8) k/uL Nucleated RBCs (0-0) /100 WBC PT (9.0-12.0) sec ABG pH (7.35-7.45) ABG pCO2 (35-45) mmHg ABG pO2 (83-108) mmHg ABG HCO3 (21-25) mmol/L ABG Total CO2 (19-24) mmol/L Sodium 135 L (137-145) mmol/L Carbon Dioxide 18 L (22-30) mmol/L BUN 33 H (7-17) mg/dL Creatinine (0.52-1.04) mg/dL Glucose 202 H (74-99) mg/dL POC Glucose (mg/dL) (75-99) mg/dL Plasma Lactic Acid Michael 4.2 H* (0.7-2.0) mmol/L Phosphorus (2.5-4.5) mg/dL Magnesium (1.6-2.3) mg/dL Total Bilirubin (0.2-1.3) mg/dL AST (14-36) U/L ALT (9-52) U/L Troponin I (0.000-0.034) ng/mL Total Protein (6.3-8.2) g/dL Albumin (3.5-5.0) g/dL Prealbumin (18-36) mg/dL 07/30/16 07/30/16 07/30/16 Range/Units 15:49 22:36 22:36 WBC 13.1 H (3.8-10.6) k/uL MCHC 30.6 L (31.0-37.0) g/dL Neutrophils # (Manual) 9.0 H (1.3-7.7) k/uL Lymphocytes # (Manual) 0.7 L (1.0-4.8) k/uL Nucleated RBCs (0-0) /100 WBC PT (9.0-12.0) sec ABG pH (7.35-7.45) ABG pCO2 (35-45) mmHg ABG pO2 (83-108) mmHg ABG HCO3 (21-25) mmol/L ABG Total CO2 (19-24) mmol/L Sodium (137-145) mmol/L Carbon Dioxide (22-30) mmol/L BUN (7-17) mg/dL Creatinine (0.52-1.04) mg/dL Glucose (74-99) mg/dL POC Glucose (mg/dL) (75-99) mg/dL Plasma Lactic Acid Michael 6.6 H* (0.7-2.0) mmol/L Phosphorus (2.5-4.5) mg/dL Magnesium (1.6-2.3) mg/dL Total Bilirubin (0.2-1.3) mg/dL AST (14-36) U/L ALT (9-52) U/L Troponin I (0.000-0.034) ng/mL Total Protein (6.3-8.2) g/dL Albumin (3.5-5.0) g/dL Prealbumin 6 L (18-36) mg/dL 07/30/16 07/30/16 07/30/16 Range/Units 22:36 22:36 23:24 WBC (3.8-10.6) k/uL MCHC (31.0-37.0) g/dL Neutrophils # (Manual) (1.3-7.7) k/uL Lymphocytes # (Manual) (1.0-4.8) k/uL Nucleated RBCs (0-0) /100 WBC PT (9.0-12.0) sec ABG pH (7.35-7.45) ABG pCO2 (35-45) mmHg ABG pO2 (83-108) mmHg ABG HCO3 (21-25) mmol/L ABG Total CO2 (19-24) mmol/L Sodium 134 L (137-145) mmol/L Carbon Dioxide 14 L (22-30) mmol/L BUN 39 H (7-17) mg/dL Creatinine 1.20 H (0.52-1.04) mg/dL Glucose 171 H (74-99) mg/dL POC Glucose (mg/dL) 180 H (75-99) mg/dL Plasma Lactic Acid Michael (0.7-2.0) mmol/L Phosphorus (2.5-4.5) mg/dL Magnesium (1.6-2.3) mg/dL Total Bilirubin 1.7 H (0.2-1.3) mg/dL AST (14-36) U/L ALT (9-52) U/L Troponin I 0.126 H* (0.000-0.034) ng/mL Total Protein 5.0 L (6.3-8.2) g/dL Albumin 2.4 L (3.5-5.0) g/dL Prealbumin (18-36) mg/dL 07/31/16 07/31/16 07/31/16 Range/Units 00:32 02:16 02:16 WBC 10.8 H (3.8-10.6) k/uL MCHC 29.1 L (31.0-37.0) g/dL Neutrophils # (Manual) (1.3-7.7) k/uL Lymphocytes # (Manual) (1.0-4.8) k/uL Nucleated RBCs 5 H (0-0) /100 WBC PT (9.0-12.0) sec ABG pH <7.00 L* (7.35-7.45) ABG pCO2 52 H (35-45) mmHg ABG pO2 134 H (83-108) mmHg ABG HCO3 11 L (21-25) mmol/L ABG Total CO2 12 L (19-24) mmol/L Sodium 136 L (137-145) mmol/L Carbon Dioxide 12 L (22-30) mmol/L BUN 39 H (7-17) mg/dL Creatinine 1.40 H (0.52-1.04) mg/dL Glucose 148 H (74-99) mg/dL POC Glucose (mg/dL) (75-99) mg/dL Plasma Lactic Acid Michael (0.7-2.0) mmol/L Phosphorus 6.8 H (2.5-4.5) mg/dL Magnesium 2.6 H (1.6-2.3) mg/dL Total Bilirubin 1.4 H (0.2-1.3) mg/dL AST 134 H (14-36) U/L ALT 69 H (9-52) U/L Troponin I (0.000-0.034) ng/mL Total Protein 4.8 L (6.3-8.2) g/dL Albumin 2.2 L (3.5-5.0) g/dL Prealbumin (18-36) mg/dL 07/31/16 07/31/16 Range/Units 02:16 02:45 WBC (3.8-10.6) k/uL MCHC (31.0-37.0) g/dL Neutrophils # (Manual) (1.3-7.7) k/uL Lymphocytes # (Manual) (1.0-4.8) k/uL Nucleated RBCs (0-0) /100 WBC PT 13.1 H (9.0-12.0) sec ABG pH (7.35-7.45) ABG pCO2 (35-45) mmHg ABG pO2 (83-108) mmHg ABG HCO3 (21-25) mmol/L ABG Total CO2 (19-24) mmol/L Sodium (137-145) mmol/L Carbon Dioxide (22-30) mmol/L BUN (7-17) mg/dL Creatinine (0.52-1.04) mg/dL Glucose (74-99) mg/dL POC Glucose (mg/dL) (75-99) mg/dL Plasma Lactic Acid Michael 11.2 H* (0.7-2.0) mmol/L Phosphorus (2.5-4.5) mg/dL Magnesium (1.6-2.3) mg/dL Total Bilirubin (0.2-1.3) mg/dL AST (14-36) U/L ALT (9-52) U/L Troponin I (0.000-0.034) ng/mL Total Protein (6.3-8.2) g/dL Albumin (3.5-5.0) g/dL Prealbumin (18-36) mg/dL
[2016-07-31] MEDS ORDERED: HEPARIN SODIUM,PORCINE 5,000 UNIT/ML 1 ML VIAL SQ SCH (08:00)
[2016-07-31 08:21] VITALS: PULSE 0; RESP 0
[2016-07-31 08:50] LABS: ABG HCO3 7 mmol/L (21-25); ABG PCO2 33 mmHg (35-45); ABG PH <7.00 (7.35-7.45); ABG PO2 76 mmHg (83-108)
[2016-07-31 08:51] LABS: ABG Base Excess -22.6 mmol/L; ABG TCO2 8 mmol/L (19-24)
[2016-07-31] MEDS ORDERED: CHLORHEXIDINE GLUCONATE 15 ML CUP MUCOUS MEM SCH (09:00)
--- NOTE | 2016-08-01 14:10 | DS ---
DATE OF ADMISSION: 07/28/2016 DATE OF DISCHARGE: 07/31/2016 This dictation is both summary and discharge summary. Patient is an 86-year-old frail female who was admitted for hematuria. Patient underwent cauterization and subsequently patient had an abdominal distention and free air in the abdomen, which was believed to be secondary to probable bladder perforation, although which was not evident on cystogram. The patient, overnight her clinical condition worsened. Patient became more septic, acidotic. Patient was subsequently intubated and was transferred to ICU. Patient had all the features of sepsis including elevated troponin. Multiple consultants were following the patient. Considering the patient's age, severe cachexia, severe protein calorie malnutrition, extreme poor prognosis and patient's dementia status, family made the decision of terminal extubation. Patient was subsequently with extubated. Patient . Please refer to nursing documentation for exact time and date of . Preliminary cause of is probable peritonitis and sepsis secondary to peritonitis, although there is no clear-cut evidence of bowel rupture. Family decided against laparotomy. Please refer to the surgeon's note for further details. Patient was initially admitted under Dr. Melara's service and he requested service to be transferred to [place].
--- NOTE | 2016-08-03 13:54 | CDI ---
In responding to this query, please exercise your independent professional judgment. The [facility] Coding Staff and Clinical Documentation Specialists appreciate your assistance in clarifying documentation, maintaining compliance with coding guidelines, accurately documenting patients condition and capturing severity of illness. The fact that a question is asked does not imply that any particular answer is desired or expected. Communication forms are a method of clarifying documentation and are not made part of the Legal Health Record. Thank you in advance for your clarification. Last Revision, August [address] [place] [address] Documentation Clarification Form Mortality Review Clarification Date: 08/03/2016 1:39:00 PM From: Zehra Dorman RN, CCDS Admit Date: 07/28/2016 4:04:00 PM Patient Name: Keri Giron Visit Number: [id number] Dr. Laila Andino History/Risk Factors: Toxic metabolic encephalopathy, acute renal failure 2nd to pre-renal azotemia, severe PCM< Free intraperitoneal air. Clinical Indicators: 07/31 Surgical Progress Note: "Pt had increasing SOB and was intubated. Pt is hypotensive, A-line was inserted, and pt on Levophed drip, acidotic 07/31 0200 Vital signs/Pulse oximetry: RR 29-37 Spo2 55/76/84/87/90 on 100% MV Lung/Breathing assessment: SOB ABG/CBG: pH <7 pCO2 52 pHCO3 11 Lactate -19.1 Treatment: Breathing TX: Duoneb Continuous Pulse ox while in ICU Vent: Pt intubated s/p A-team call O2: 2l increased to 100% MV 2L IVF Bolus In your professional opinion, can you please clarify if these findings signify one of the following conditions? Acuity: o Acute o Chronic o Acute on Chronic Respiratory Status: o Respiratory failure with hypercapnia o Respiratory failure with hypoxia o Acute Respiratory Distress o Other Diagnosis, please specify o Unable to determine Please document in your progress notes and discharge summary in order to capture severity of illness and risk of mortality. Include clinical findings that support your diagnosis. FYI: Press F11 to launch patient chart. Place X here if this finding has no clinical significance, is not applicable or if you are not able to provide any additional documentation. BLAIRE
--- NOTE | 2016-08-03 14:10 | CDI ---
In responding to this query, please exercise your independent professional judgment. The [facility] Coding Staff and Clinical Documentation Specialists appreciate your assistance in clarifying documentation, maintaining compliance with coding guidelines, accurately documenting patients condition and capturing severity of illness. The fact that a question is asked does not imply that any particular answer is desired or expected. Communication forms are a method of clarifying documentation and are not made part of the Legal Health Record. Thank you in advance for your clarification. Last Revision, August 2015 Opal Frost [address] [facility] [place] [address] Documentation Clarification Form Mortality review Clairification Date: 08/03/2016 1:56:00 PM From: Zehra Dorman RN, CCDS Admit Date: 07/28/2016 4:04:00 PM Patient Name: Keri Giron Visit Number: [id number] Dr. Laila Andino . Patient history/risk factors: Bladder Ca s/p resection of superficial tumors ant and post bladder wall Clinical Indicators: 07/31 D/C Summary: The patient developed a supraventricular tachycardia and apparently became acidotic. She is transferred to the intensive care unit and intubated. It became apparent that she was septic based on the laboratory studies. She required pressor agents. Severe protein calorie malnutrition. Family decided on terminal extubation" Vitals: 07/31 0430: HR 105, RR 35, B/P 72/46, 77/55, spo2 80% on 1005 MV Treatment: 2L IVF BOLUS Levophed Drip titrate for B/P HCO3 IVP Zosyn IVPB In your professional opinion, can you please specify the type of shock if known ? Septic Shock o Suspected or known causative organism o Any associated organ failure Cardiogenic Shock o Cause Hypovolemic Shock o Cause Other, please specify Unable to determine Please document in your progress notes and discharge summary in order to capture severity of illness and risk of mortality. Include clinical findings that support your diagnosis. FYI: Press F11 to launch patient chart. Place X here if this finding has no clinical significance, is not applicable or if you are not able to provide any additional documentation. MTDD
--- NOTE | 2016-08-11 19:46 | DS ---
DATE OF ADMISSION: 07/28/2016 DATE OF DISCHARGE: 07/31/2016 ADDENDUM: DISCHARGE ASSESSMENT: Patient had septic shock secondary to peritonitis and ( ) organism is unknown. The patient was ventilator -dependent respiratory failure secondary to septic shock which is hypoxic respiratory failure. Patient had toxic encephalopathy from sepsis. MTDD
== END 2016-07-31 10:58 | disposition expired | DRG 668 ==
LOC: OR 08:04 → 3OBS 10:26 → OR 07-28 16:04 → 3OBS 07-28 16:04 → 3SUR 07-28 22:02 → 6ICU 07-30 23:15
PROVIDERS: ADMIT Urology; ATTEND Internal Medicine
PROC: 0TBB8ZZ Excision of Bladder, Via Natural or Artificial Opening Endoscopic (ICD-10-PCS; 2016-07-26 10:15)
PROC: 0BH18EZ Insertion of Endotracheal Airway into Trachea, Via Natural or Artificial Opening Endoscopic (ICD-10-PCS; principal; 2016-07-31)
PROC: 5A1935Z Respiratory Ventilation, Less than 24 Consecutive Hours (ICD-10-PCS; principal; 2016-07-31)
DX: C67.9 Malignant neoplasm of bladder, unspecified (principal); E43 Unspecified severe protein-calorie malnutrition; R65.21 Severe sepsis with septic shock; J96.01 Acute respiratory failure with hypoxia; G92 Toxic encephalopathy; A41.9 Sepsis, unspecified organism; K65.9 Peritonitis, unspecified; J90 Pleural effusion, not elsewhere classified; E87.2 Acidosis; I47.1 Supraventricular tachycardia; N17.9 Acute kidney failure, unspecified; R64 Cachexia; F03.90 Unspecified dementia, unspecified severity, without behavioral disturbance, psychotic disturbance, mood disturbance, and anxiety; E87.8 Other disorders of electrolyte and fluid balance, not elsewhere classified; E86.9 Volume depletion, unspecified; D64.9 Anemia, unspecified; E78.5 Hyperlipidemia, unspecified; I10 Essential (primary) hypertension; K21.9 Gastro-esophageal reflux disease without esophagitis; T40.605A Adverse effect of unspecified narcotics, initial encounter; Z82.49 Family history of ischemic heart disease and other diseases of the circulatory system; Z87.11 Personal history of peptic ulcer disease; Z79.899 Other long term (current) drug therapy
CPT/HCPCS: 31500; 36600; 36620; 71010; 71020; 74020; 74177; 74430; 80048; 80053; 82805; 83605; 83735; 84100; 84134; 84484; 85025; 85027; 85610; 85730; 86850; 86870; 86880; 86900; 86901; 86902; 87040; 87070; 87205; 88307; 93005; 94002